=== PATIENT | male | born 1980 ===

== ENCOUNTER 2018-01-13 03:22 | Emergency (ER) | payer SELFPAY ==
[2018-01-13 03:33] VITALS: RESP 18; O2SAT 96
--- NOTE | 2018-01-13 03:49 | C.PDOC ---
History Of Present Illness 37-year-old male brought in by ambulance for public intoxication. Patient admits he was drinking tonight and tried to walk home when someone called EMS. Denies any trauma or recent fall. Patient offers no other physical complaints. Time Seen by Provider: 01/13/18 03:33 Chief Complaint (Nursing): Substance Abuse History Per: Patient History/Exam Limitations: no limitations Onset/Duration Of Symptoms: Hrs Current Symptoms Are (Timing): Still Present Modifying Factor(s): Alcohol Involuntary Hold By: None Past Medical History Reviewed: Historical Data, Nursing Documentation, Vital Signs Vital Signs: Last Vital Signs Temp 97.9 F 01/13/18 03:29 Pulse 89 01/13/18 03:29 Resp 18 01/13/18 03:29 BP 154/78 H 01/13/18 03:29 Pulse Ox 96 01/13/18 03:29 - Medical History PMH: No Chronic Diseases Surgical History: No Surg Hx Family History: States: No Known Family Hx - Social History Hx Alcohol Use: Yes Hx Substance Use: No - Immunization History Hx Tetanus Toxoid Vaccination: No Hx Influenza Vaccination: No Hx Pneumococcal Vaccination: No Review Of Systems Cardiovascular: Negative for: Chest Pain Respiratory: Negative for: Shortness of Breath Gastrointestinal: Negative for: Nausea, Vomiting Skin: Negative for: Lesions, Bruising Neurological: Negative for: Weakness, Numbness, Headache Psych: Positive for: Other (ETOH intoxication) Physical Exam - Physical Exam Appears: Well, Non-toxic, No Acute Distress Skin: Warm, Dry, No Rash Head: Atraumatic, Normacephalic Eye(s): bilateral: Normal Inspection Oral Mucosa: Moist Neck: Normal ROM Chest: Symmetrical Cardiovascular: Rhythm Regular, No Murmur Respiratory: Normal Breath Sounds, No Rales, No Rhonchi, No Wheezing Gastrointestinal/Abdominal: Soft, No Tenderness, No Distention Extremity: Bilateral: Atraumatic, Normal Color And Temperature, Normal ROM Neurological/Psych: Normal Speech, Other (Alert & Oriented x2, appears intoxicated but is responsive to verbal stimuli) ED Course And Treatment O2 Sat by Pulse Oximetry: 96 (on room air) Pulse Ox Interpretation: Normal Medical Decision Making Medical Decision Making: Impression: ETOH intoxication Plan: * Will monitor in the ED for clinical sobriety Disposition Counseled Patient/Family Regarding: Diagnosis, Need For Followup, Rx Given - Disposition Referrals: [facility] [Outside] [facility] [employer] [Outside] Disposition: HOME/ ROUTINE Disposition Time: 05:17 Condition: STABLE Instructions: Alcohol Abuse and Alcoholism (DC) Forms: [employer] (Kyrgyz) Print Language: UKRAINIAN - POA Present On Arrival: None - Clinical Impression Clinical Impression: Alcohol intoxication - PA / BOTTLE [employer]ORTER / Resident Statement MD/DO has reviewed & agrees with the documentation as recorded. - Scribe Statement The provider has reviewed the documentation as recorded by the Scribe (Allyn Sarmiento) All medical record entries made by the Scribe were at my direction and personally dictated by me. I have reviewed the chart and agree that the record accurately reflects my personal performance of the history, physical exam, medical decision making, and the department course for this patient. I have also personally directed, reviewed, and agree with the discharge instructions and disposition.
[2018-01-13 05:40] VITALS: BP 108/65; PULSE 80; TEMP 97.8
== END 2018-01-13 05:43 | disposition home or self-care (01) ==
LOC: C.ER 03:22
DX: F10.129 Alcohol abuse with intoxication, unspecified (principal)